=== PATIENT | male | born 2000 | race Two or more races ===

== ENCOUNTER 2020-08-14 02:24 | Emergency (ER) | payer OTHER ==
[~2020-08-14] VITALS: Ht 175.3 cm; Wt 72.6 kg
--- NOTE | 2020-08-14 02:28 | NUR ---
Patient BIB EMS [facility] for ETOH intoxication. GCS 15 upon arrival, AAOx4. Patient has a sober idividual coming who is willing to take him home. ER MD is aware as agreeable to this plan.
--- NOTE | 2020-08-14 02:46 | NUR ---
Patients friend states he got a flat tire, but will be coming after [employer] arrives to replace it.
--- NOTE | 2020-08-14 03:31 | NUR ---
Patient in bed, awaiting his ride home. no acute distress noted.
[2020-08-14 04:00] VITALS: BP 125/70
--- NOTE | 2020-08-14 04:00 | NUR ---
Patient discharged to home in stable condition. Written and verbal after care instructions given. Patient verbalizes understanding of instructions. Stressed follow up or return to ER for worsening s/s. Ambulated from ER with stable gait. Driven home by mother Vanda. All belongings with patient.
== END 2020-08-14 04:01 | disposition home or self-care (01) ==
LOC: ER 02:27
DX: F10.129 Alcohol abuse with intoxication, unspecified (principal)
CPT/HCPCS: A4663